=== PATIENT | male | born 1970 | race Caucasian/White ===

== ENCOUNTER 2019-05-30 02:26 | Emergency (ER) | payer OTHER ==
[2019-05-30 02:57] VITALS: RESP 18
[2019-05-30] MEDS ORDERED: KETOROLAC 60 MG/2 ML VIAL IM STA (03:04)
--- NOTE | 2019-05-30 03:18 | ED ---
General Adult HPI - General Chief complaint: Extremity Injury, Upper Stated complaint: Rt arm injury,poss broken Time Seen by Provider: 05/30/19 02:59 Source: patient, RN notes reviewed, old records reviewed Mode of arrival: ambulatory Limitations: no limitations - History of Present Illness Initial comments: 48-year-old male patient presents ED chief complaint of right humerus. Patient reports he was arm wrestling, felt a pop and had pain in his right upper extremity. Denies any other complaints. Systemic: Pt denies fatigue, fever/chills, rash. Pt denies weakness, night sweats, weight loss. Neuro: Pt denies headache, visual disturbances, syncope or pre-syncope. HEENT: Pt denies ocular discharge or irritation, otalgia, rhinorrhea, pharyngitis or notable lymphadenopathy. Cardiopulmonary: Pt denies chest pain, SOB, heart palpitations, dyspnea on exertion. Abdominal/GI: Pt denies abdominal pain, n/v/d. : Pt denies dysuria, burning w/ urination, frequency/urgency. Denies new onset urinary or bowel incontinence. MSK: Pt denies myalgia, loss of strength or function in extremities. Neuro: Pt denies new onset weakness, paresthesias. - Related Data Previous Rx's Medication Instructions Recorded HYDROcodone/APAP 7.5-325MG [[place] 1 tab PO Q6HR PRN 3 Days #12 tab 05/30/19 7.5-325] Allergies Allergy/AdvReac Type Severity Reaction Status Date / Time No Known Allergies Allergy Verified 05/30/19 02:57 Review of Systems ROS Statement: Those systems with pertinent positive or pertinent negative responses have been documented in the HPI. ROS Other: All systems not noted in ROS Statement are negative. Past Medical History Past Medical History: No Reported History History of Any Multi-Drug Resistant Organisms: None Reported Past Surgical History: No Surgical Hx Reported Past Psychological History: No Psychological Hx Reported Smoking Status: Never smoker Past Alcohol Use History: Occasional Past Drug Use History: None Reported General Exam - General Exam Comments Initial Comments: Constitutional: NAD, AOX3, Pt has pleasant affect. HEENT: NC/AT, trachea midline, neck supple, no lymphadenopathy. Posterior pharynx non erythematous, without exudates. External ears appear normal, without discharge. Mucous membranes moist. Eyes PERRLA, EOM intact. There is no scleral icterus. No pallor noted. Cardiopulmonary: RRR, no murmurs, rubs or gallops, no JVD noted. Lungs CTAB in anterior and posterior herbert. No peripheral edema. Abdominal exam: Abdomen soft and non-distended. Abdomen non-tender to palpation in all 4 quadrants. Bowel sounds active in LLQ. No hepatosplenomegaly. No ecchymosis Neuro: CN II-XII grossly intact. No nuchal rigidity. No raccon eyes, no young sign, no hemotympanum. No cervical spinal tenderness. MSK: Right midshaft humerus tender to palpation. No ecchymoses. Flexion extension intact at wrist. Sensation intact. Coaptation splint placed. Patient neurovascularly intact after sling placement. No posterior calf tenderness bilaterally, homans sign negative bilaterally. Posterior tibialis and radial pulse +2 bilaterally. Sensation intact in upper and lower extremities. Full active ROM in upper and lower extremities, 5/5 stregnth. Limitations: no limitations Course Vital Signs 05/30/19 02:53 Temperature 98.6 F Pulse Rate 106 H Respiratory 18 Rate Blood Pressure 127/72 O2 Sat by Pulse 96 Oximetry Medical Decision Making - Medical Decision Making 48-year-old male patient presents ED chief complaint of right humerus. Patient reports he was arm wrestling, felt a pop and had pain in his right upper extrem ity. Denies any other complaints. Patient vital signs stable, afebrile. Physical exam displayed mid shaft humerus region tender to palpation. Neurovascularly intact. Flexion and extension at wrist intact.. Patient placed in a coaptation splint, sling. Neurovascular intact after splint placement. Reduction attempted during the placement, Repeat films displayed mild improvement of displacement. Patient is here on vacation, states that he is returning home tomorrow, he has been previously established with orthopedic surgeons in his hometown. Patient discharged with 3 days of pain medication, provided orthopedic consult area and unable to follow up with his previous established. Case discussed in depth with Dr. Jimenez. Disposition Clinical Impression: Humerus distal fracture Disposition: HOME SELF-CARE Condition: Stable Instructions (If sedation given, give patient instructions): Arm Fracture in Adults (ED) Additional Instructions: Patient to adhere to previously discussed treatment plan and will take medication(s) as directed. Patient to follow up with PCP in 1-2 days. Patient to return to ED if symptoms do not improve. Follow-up with primary care provider and orthopedic consult tomorrow. Return to ER if condition worsens. Prescriptions: HYDROcodone/APAP 7.5-325MG [[place] 7.5-325] 1 tab PO Q6HR PRN 3 Days #12 tab PRN Reason: pain Is patient prescribed a controlled substance at d/c from ED?: Yes When asked, does pt state using other controlled substances?: No If prescribed controlled substance>3 days was MAPS reviewed?: Prescribed <3 Days If opioid is for acute pain is fill amount 7 days or less?: Yes If Rx opioid, was Start Talking consent form obtained?: Yes Referrals: Nonstaff,Physician [Primary Care Provider] - 1-2 days Balwinder Pike MD [STAFF PHYSICIAN] - 1-2 days
[2019-05-30] MEDS ORDERED: MORPHINE SULFATE 4 MG/ML SYRINGE IM STA (03:30)
--- NOTE | 2019-05-30 03:33 | XR ---
EXAM: XR Right Humerus, 2 or More Views CLINICAL HISTORY: ITS.REASON XR Reason: Pain TECHNIQUE: Frontal and lateral views of the right humerus. COMPARISON: No relevant prior studies available. IMPRESSION: Significantly displaced oblique fracture through the distal humerus.
[2019-05-30 04:41] VITALS: BP 101/71; PULSE 100; TEMP 98.2
--- NOTE | 2019-05-30 04:48 | XR ---
EXAM: XR Right Humerus, 2 or More Views CLINICAL HISTORY: [email or web address].[email or web address] XR Reason: Pain TECHNIQUE: Frontal and lateral views of the right humerus. COMPARISON: 05/30/2019 IMPRESSION: Redemonstration of displaced oblique fracture through the distal humerus.
== END 2019-05-30 04:38 | disposition home or self-care (01) ==
LOC: EC 02:26
DX: S42.401A Unspecified fracture of lower end of right humerus, initial encounter for closed fracture (principal); X50.9XXA Other and unspecified overexertion or strenuous movements or postures, initial encounter; Y93.72 Activity, wrestling
CPT/HCPCS: 73060; 99284; 29105; 96372 ×2; J2270; J1885